=== PATIENT | male | born 1945 | race Caucasian/White ===

== ENCOUNTER 2018-09-06 10:56 | Outpatient (CLI) | payer MEDICARE ==
[2018-09-06 18:05] LABS: BASOPHILS # (AUTO) 0.1 10^3/uL (0.0-0.1); BASOPHILS % (AUTO) 1.9 %; EOSINOPHILS # (AUTO) 0.1 10^3/uL (0.0-0.7); EOSINOPHILS % (AUTO) 3.3 %; HGB - HEMOGLOBIN 14.6 g/dL (14.0-18.0); LYMPHOCYTES # (AUTO) 1.5 10^3/uL (1.5-3.5); LYMPHOCYTES % (AUTO) 35.7 %; MEAN CORPUSCULAR HEMOGLOBIN 29.7 pg (27.0-31.0); MEAN CORPUSCULAR HGB CONC 32.3 g/dL (32.0-36.0); MEAN PLATELET VOLUME 11.2 fL (7.4-11.4); MONOCYTES # (AUTO) 0.3 10^3/uL (0.0-1.0); MONOCYTES % (AUTO) 7.5 %; NEUTROPHILS # (AUTO) 2.1 10^3/uL (1.5-6.6); NEUTROPHILS % (AUTO) 51.6 %; PLT - PLATELET COUNT 141 10^3/uL (130-450); RED BLOOD COUNT 4.93 10^6/uL (4.70-6.10); RED CELL DISTRIBUTION WIDTH 13.6 % (12.0-15.0); WHITE BLOOD COUNT 4.1 x10^3/uL (4.8-10.8)
[2018-09-06 18:25] LABS: ALBUMIN 4.1 g/dL (3.2-5.5); ALBUMIN/GLOBULIN RATIO 1.4 (1.0-2.2); ALKALINE PHOSPHATASE 75 IU/L (42-121); ALT ALANINE AMINOTRANSFERASE 27 IU/L (10-60); AST ASPARTATE AMINOTRANSFERASE 26 IU/L (10-42); BILIRUBIN,TOTAL 1.2 mg/dL (0.2-1.0); BUN - BLOOD UREA NITROGEN 20 mg/dL (6-20); CALCIUM 8.7 mg/dL (8.5-10.3); CARBON DIOXIDE - CO2 28 mmol/L (21-32); CHLORIDE 107 mmol/L (101-111); CHOLESTEROL 185 mg/dL; CREATININE 0.8 mg/dL (0.6-1.2); GFR - MDRD 95 (>89); GLUCOSE 86 mg/dL (70-100); HDL CHOLESTEROL 61 mg/dL; LDL CHOLESTEROL,CALCULATED 115 mg/dL; LDL/HDL RATIO 1.9 (<3.6); SODIUM 141 mmol/L (135-145); TOTAL PROTEIN 7.1 g/dL (6.7-8.2); VLDL CHOLESTEROL 9 mg/dL
[2018-09-06 18:33] LABS: HB2 TOTAL 15.8 g/dL; HEMOGLOBIN A1C 0.52 g/dL; HEMOGLOBIN A1C % 5.2 % (4.6-6.2)
== END 2018-09-06 10:57 | disposition home or self-care (01) ==
LOC: LAB.F 10:56
PROVIDERS: ATTEND Internal Medicine
DX: Z12.5 Encounter for screening for malignant neoplasm of prostate (principal); G62.9 Polyneuropathy, unspecified; D68.59 Other primary thrombophilia; I10 Essential (primary) hypertension; E78.2 Mixed hyperlipidemia
CPT/HCPCS: 36415; 80053; 80061; 83036; 85025; G0103; 83721; 84153

== ENCOUNTER 2018-12-04 14:36 | Outpatient (CLI) | payer MEDICARE ==
--- NOTE | 2018-12-05 14:45 | XRAY Report ---
Reason: CHEST WALL PAIN Procedure Date: 12/04/2018 Accession Number: [id number] / [id number] Procedure: XR - Chest 2 View X-Ray CPT Code: 51787 FULL RESULT: EXAM: CHEST RADIOGRAPHY EXAM DATE: 12/04/2018 03:16 PM. CLINICAL HISTORY: CHEST WALL PAIN. COMPARISON: None. TECHNIQUE: 2 views. FINDINGS: Lungs/Pleura: No focal opacities evident. No pleural effusion. No pneumothorax. Normal volumes. Mediastinum: Heart and mediastinal contours are unremarkable. IMPRESSION: No evidence of acute thoracic process [facility]
--- NOTE | 2018-12-05 14:50 | XRAY Report ---
Reason: CHEST WALL PAIN Procedure Date: 12/04/2018 Accession Number: [id number] / [id number] Procedure: XR - Thoracic Spine 2 View CPT Code: FULL RESULT: EXAM: THORACIC SPINE RADIOGRAPHY EXAM DATE: 12/04/2018 03:23 PM. CLINICAL HISTORY: CHEST WALL PAIN. COMPARISON: None. TECHNIQUE: 2 views. FINDINGS: Alignment: There is mild lateral curvature of the thoracic spine. Bones: No fractures or bone lesions. Disks: There are moderate anterior osteophytes. Disk heights are maintained. Soft Tissues: The visualized lungs and cardiomediastinal silhouette are unremarkable. IMPRESSION: Mild to moderate thoracic spondylosis [facility]
== END 2018-12-04 14:37 | disposition home or self-care (01) ==
LOC: DI 14:36
PROVIDERS: ATTEND Nurse Practitioner Primary Care
DX: M47.9 Spondylosis, unspecified (principal); R07.89 Other chest pain
CPT/HCPCS: 71046; 72070

== ENCOUNTER 2018-12-13 11:41 | Outpatient (CLI) | payer MEDICARE ==
[2018-12-13] MEDS ORDERED: IOVERSOL 320 100 ML VIAL IVP ONE ×2 (11:49→13:16)
[2018-12-13] MEDS ORDERED: IOVERSOL 320 50 ML VIAL ONE (11:49)
[2018-12-13 12:11] LABS: CREATININE 0.9 mg/dL (0.6-1.2)
[2018-12-13] MEDS ORDERED: IOVERSOL 320 50 ML VIAL PO ONE (13:16)
--- NOTE | 2018-12-13 15:08 | CT Report ---
Reason: CHEST WALL PAIN, ABDOMINAL PAIN Procedure Date: 12/13/2018 Accession Number: [id number] / [id number] Procedure: CT - CHEST W CPT Code: FULL RESULT: EXAM: CT CHEST, ABDOMEN AND PELVIS EXAM DATE: 12/13/2018 01:18 PM. CLINICAL HISTORY: Chest wall pain, abdominal pain. COMPARISONS: Chest radiograph 12/04/2018. TECHNIQUE: Routine helical CT imaging was performed through the chest, abdomen, and pelvis. IV contrast: OPTI 320 90mL. Enteric contrast: No. Reconstructions: Coronal and sagittal. In accordance with CT protocol optimization, one or more of the following dose reduction techniques were utilized for this exam: automated exposure control, adjustment of mA and/or KV based on patient size, or use of iterative reconstructive technique. FINDINGS: Lungs/Pleura: 3 mm fissural nodule image 35 series 3. No suspicious nodules, bronchial thickening, consolidation, or edema. Pulmonary vasculature is normal. No effusions or pneumothorax. Mediastinum: Normal. No adenopathy or masses. Liver: Normal. Gallbladder/Bile Ducts: Unremarkable. Spleen: Normal. Pancreas: Normal. Adrenal Glands: Normal. Kidneys: Normal. No masses or hydronephrosis. Peritoneal Cavity/Bowel: Diverticulosis without diverticulitis. No free fluid, free air or adenopathy. No masses or acute inflammatory process. The appendix is well visualized and normal. Pelvic Organs: Postsurgical appearance of the pelvis likely related to prior prostatectomy. Vasculature: No aneurysms or other significant abnormality. Bones: No significant abnormality. Other: None. IMPRESSION: Solitary 3 mm fissure based nodule which subjectively is felt to most likely represent a benign lymph node. Fleischner Society Recommendations 2017 Marishon et al. Radiology 2017 Solid Nodules-Low Risk Patients: Solid Nodules-High Risk Patients: [facility] ADDENDUM: 12/15/18 09:13 a.m. 3 mm nodule resides in the left major fissure centrally within the chest, not in contact with the chest wall or mediastinum.
--- NOTE | 2018-12-13 15:08 | CT Report ---
Reason: CHEST WALL PAIN, ABDOMINAL PAIN Procedure Date: 12/13/2018 Accession Number: [id number] / [id number] Procedure: CT - Abdomen/Pelvis W CPT Code: FULL RESULT: EXAM: CT CHEST, ABDOMEN AND PELVIS EXAM DATE: 12/13/2018 01:18 PM. CLINICAL HISTORY: Chest wall pain, abdominal pain. COMPARISONS: Chest radiograph 12/04/2018. TECHNIQUE: Routine helical CT imaging was performed through the chest, abdomen, and pelvis. IV contrast: OPTI 320 90mL. Enteric contrast: No. Reconstructions: Coronal and sagittal. In accordance with CT protocol optimization, one or more of the following dose reduction techniques were utilized for this exam: automated exposure control, adjustment of mA and/or KV based on patient size, or use of iterative reconstructive technique. FINDINGS: Lungs/Pleura: 3 mm fissural nodule image 35 series 3. No suspicious nodules, bronchial thickening, consolidation, or edema. Pulmonary vasculature is normal. No effusions or pneumothorax. Mediastinum: Normal. No adenopathy or masses. Liver: Normal. Gallbladder/Bile Ducts: Unremarkable. Spleen: Normal. Pancreas: Normal. Adrenal Glands: Normal. Kidneys: Normal. No masses or hydronephrosis. Peritoneal Cavity/Bowel: Diverticulosis without diverticulitis. No free fluid, free air or adenopathy. No masses or acute inflammatory process. The appendix is well visualized and normal. Pelvic Organs: Postsurgical appearance of the pelvis likely related to prior prostatectomy. Vasculature: No aneurysms or other significant abnormality. Bones: No significant abnormality. Other: None. IMPRESSION: Solitary 3 mm fissure based nodule which subjectively is felt to most likely represent a benign lymph node. Fleischner Society Recommendations 2017 MacGertrudishon et al. Radiology 2017 Solid Nodules-Low Risk Patients: Solid Nodules-High Risk Patients: [facility] ADDENDUM: 12/15/18 09:13 a.m. 3 mm nodule resides in the left major fissure centrally within the chest, not in contact with the chest wall or mediastinum.
== END 2018-12-13 11:42 | disposition home or self-care (01) ==
LOC: LAB 11:41 → DI 11:42
PROVIDERS: ATTEND Nurse Practitioner Primary Care
DX: R07.89 Other chest pain (principal); R10.10 Upper abdominal pain, unspecified; Z85.46 Personal history of malignant neoplasm of prostate
CPT/HCPCS: 36415; 71260; 74177; 82565; Q9967

== ENCOUNTER 2019-12-03 11:00 | Outpatient (CLI) | payer OTHER ==
--- NOTE | 2019-12-04 10:35 | XRAY Report ---
Reason: ROTATOR CUFF TEAR Procedure Date: 12/03/2019 Accession Number: [id number] / [id number] Procedure: XRS - Shoulder 3 View RT CPT Code: Final Report FULL RESULT: EXAM: RIGHT SHOULDER RADIOGRAPHY 3 VIEWS EXAM DATE: 12/03/2019. CLINICAL HISTORY: Chronic right shoulder pain. No relief with physical therapy. Rotator cuff tear. COMPARISON: None. TECHNIQUE: AP, Grashey and scapular Y views. FINDINGS: Bones: No fracture or other acute abnormality. Small osteophytes at the margins of the acromioclavicular joint. Joints: No subluxation. Mild narrowing of the acromioclavicular joint. Glenohumeral joint appears normal. Soft tissues: No calcifications. Visualized right lung is clear. IMPRESSION: Mild degenerative changes of the acromioclavicular joint. Otherwise normal examination of the right shoulder. [facility]
== END 2019-12-03 11:01 | disposition home or self-care (01) ==
LOC: DI.S 11:00
PROVIDERS: ATTEND Internal Medicine
DX: M19.011 Primary osteoarthritis, right shoulder (principal)